=== PATIENT | female | born 1975 | race Caucasian/White ===

== ENCOUNTER 2021-08-27 23:32 | Emergency (ER) | payer OTHER, SELFPAY ==
--- NOTE | 2021-08-27 23:41 | ECG_ITS ---
Test Reason : PALPITATIONS Blood Pressure : / mmHG Vent. Rate : 094 BPM Atrial Rate : 094 BPM P-R Int : 130 ms QRS Dur : 076 ms QT Int : 352 ms P-R-T Axes : 065 076 058 degrees QTc Int : 440 ms Normal sinus rhythm Possible Left atrial enlargement Borderline ECG No previous ECGs available Referred By: Ernestine Hoskins Electronically Signed By:CHRIS ROSE MD
[2021-08-27 23:46] VITALS: BMI 20.6
[2021-08-27 23:57] VITALS: BP 126/75; PULSE 100; RESP 13; TEMP 36.7; O2SAT 98
--- NOTE | 2021-08-28 00:15 | ED.ARRPALP ---
HPI - Arrhythmia/Palpitations General Chief Complaint: Arrhythmia/Palpitations Stated Complaint: chest palpatations Time Seen by Provider: 08/27/21 23:41 Source: patient Mode of arrival: EMS History of Present Illness HPI narrative: 46-year-old female with significant past medical history of Graves disease and currently on Lopressor 25 mg extended release as well as 20 mg of methimazole. Patient is brought in by EMS this evening for complaints of significant racing heart, palpitations that she experienced while sitting on the couch. She states she has been taking her medications as prescribed and saw her welding process engineer, Dr. Li, 2 weeks ago. She states that she has significantly decreased her caffeine intake and that the only new change has been attempting to quit smoking. Otherwise, she denies fever, chills, nausea, vomiting, diarrhea, urinary pain/burning/frequency, new cough/sore throat /shortness of breath. Related Data Allergies Allergy/AdvReac Type Severity Reaction Status Date / Time No Known Allergies Allergy Unverified 08/27/21 23:41 Review of Systems Review of Systems: Pertinent positives and negatives as stated in HPI 10 point review of systems is otherwise negative. PMFSH Past Medical History Source: nursing notes reviewed Medical History Asthma Goiter Graves disease HTN (hypertension) Hyperthyroidism Social History Social History Advance Directives: No Advance Directives Information Provided: Yes Patient : No Physical Exam Vital Signs: Vital Signs: Last Vital Signs Temp 98.1 F 08/27/21 23:57 Pulse 94 08/28/21 00:28 Resp 14 08/28/21 00:28 BP 119/76 08/28/21 00:28 Pulse Ox 98 08/28/21 00:28 Body Mass Index 20.6 VITAL SIGNS: Reviewed. GENERAL: Well developed, well nourished, in no acute distress. HEAD: Normocephalic/atraumatic EYES: PERRLA, EOMI OROPHARYNX: no oral lesions noted, posterior pharynx clear, moist mucosa NECK: Supple, no adenopathy LUNGS: Normal breath sounds. No adventitious sounds or accessory muscle use. SpO2<98> CARDIOVASCULAR: Regular rate and rhythm without noted murmurs, no JVD or lower extremity edema. ABDOMEN: Soft, non-tender, non-distended with bowel sounds. MUSCULOSKELETAL: No tenderness, deformities, or effusions noted on gross inspection. EXTREMITIES: No cyanosis, clubbing or edema. SKIN: Inspection of the skin reveals no rashes NEUROLOGIC: Alert and oriented x 4. Strength and sensation to light touch were grossly intact x 4. Course Course Course Narrative: 46-year-old female with history and clinical presentation suggestive of possible mild dehydration, or underlying infection that may be contributing to patient's sinus tachycardia. Review of all investigations only significant for known underlying Graves disease for which patient is currently being treated and under the care her welding process engineer. The thyroid results were discussed with her at bedside and are consistent with her recent laboratory testing. She has had good response to IV fluids and was counseled extensively on staying well hydrated and to continue monitoring her caffeine intake as well as sticking to her medications that are prescribed for her Graves disease. There is no evidence of any thyroid storm or other acute medical problems. MDM - Arrhythmia/Palpitations Lab Data Result diagrams: 08/28/21 00:36 08/28/21 00:36 Labs: Lab Results 08/28/21 08/28/21 Range/Units 00:36 00:36 WBC 10.0 (4.8-10.8) X10*3/uL RBC 4.61 (4.20-5.50) X10*6/uL Hgb 13.3 (12.0-16.0) g/dl Hct 41.5 (37.0-47.0) % MCV 90.0 (80.0-98.0) fL MCH 28.9 (27.0-33.0) pg MCHC 32.0 (31.0-35.0) g/dl RDW 13.2 (11.0-16.0) % Plt Count 314 (160-400) X10*3/uL MPV 9.8 (9.4-12.3) fL Immature Gran % (Auto) 0.2 (0.0-0.4) % Neut % (Auto) 55.8 (45-73) % Lymph % (Auto) 32.5 (20-40) % [place] % (Auto) 8.4 (2-11) % Eos % (Auto) 2.3 (0-4) % Baso % (Auto) 0.8 (0-2) % Lymph # (Auto) 3.2 (1.2-4.9) X10*3/uL [place] # (Auto) 0.8 (0.1-1.2) X10*3/uL Eos # (Auto) 0.2 (0.0-0.4) X10*3/uL Baso # (Auto) 0.1 (0.0-0.2) X10*3/uL Abs Immat Gran (auto) 0.02 (0.00-0.03) X10*3/uL Absolute Neuts (auto) 5.6 (2.0-8.3) x10*3/uL Absolute Nucleated RBC 0.000 (0.0-0.012) X10*3/uL Nucleated RBC % (auto) 0.0 (0.0-0.2) /100WBC Sodium 144 (135-145) mmol/L Potassium 4.8 (3.3-5.1) mmol/L Chloride 108 (96-108) mmol/L Carbon Dioxide 29 (22-29) mmol/L Anion Gap 12 (12-20) BUN 11 (9-16) mg/dL Creatinine 0.78 (0.5-1.4) mg/dL Estim Creat Clear Calc 84.3 Estimated GFR > 60 Random Glucose 93 (60-115) mg/dL Calcium 9.6 (8.4-10.2) mg/dL Total Bilirubin 0.2 (0.0-1.0) mg/dL AST 13 (5-31) U/L ALT 14 (0-31) U/L Alkaline Phosphatase 85 (39-117) U/L Total Protein 6.4 L (6.5-8.0) g/dL Albumin 4.0 (3.5-5.0) g/dL TSH < 0.01 L (0.32-4.0) uIU/mL Free T4 0.66 L (0.71-1.85) ng/dL ECG Data Attestation: I personally reviewed and interpreted this ECG as follows: Prior ECG tracings: not available for review Interpretation: Normal sinus rhythm, HR- 94, no STEMI, MT / QRS/ QTC are within normal limits. Discharge Plan Discharge Clinical Impression: Palpitations, Dehydration, Graves disease, Sinus tachycardia Patient Disposition: Home, Self-Care Instructions: Dehydration (ED), Graves Disease (ED), Heart Palpitations (ED) Additional Instructions: 1. Resume all home medications as prescribed. 2. Stay well hydrated especially with water and continue to limit amount of caffeine. 3. Please follow-up with your primary care provider as well as your welding process engineer in the next 1-2 days for re-evaluation and further outpatient management. Return to the ER for worsening symptoms.
[2021-08-28 00:28] VITALS: BP 119/76; PULSE 94; RESP 14; O2SAT 98
[2021-08-28 00:42] LABS: MANUAL DIFF FLAG NO
[2021-08-28 00:43] LABS: Basophils Absolute Auto 0.1 X10*3/uL (0.0-0.2); Basophils Percent Auto 0.8 % (0-2); Eosinophils Absolute Auto 0.2 X10*3/uL (0.0-0.4); Eosinophils Percent Auto 2.3 % (0-4); Hematocrit 41.5 % (37.0-47.0); Hemoglobin 13.3 g/dl (12.0-16.0); Imm Gran Abs Auto 0.02 X10*3/uL (0.00-0.03); Imm Gran Pct Auto 0.2 % (0.0-0.4); Lymphocytes Absolute Auto 3.2 X10*3/uL (1.2-4.9); Lymphocytes Percent Auto 32.5 % (20-40); Mean Corpuscular Hemoglobin 28.9 pg (27.0-33.0); Mean Platelet Volume 9.8 fL (9.4-12.3); Monocytes Absolute Auto 0.8 X10*3/uL (0.1-1.2); Monocytes Percent Auto 8.4 % (2-11); Neutrophils Absolute Auto 5.6 x10*3/uL (2.0-8.3); Neutrophils Percent Auto 55.8 % (45-73); Platelet Count 314 X10*3/uL (160-400); Red Blood Count 4.61 X10*6/uL (4.20-5.50); Red Cell Distribution Width 13.2 % (11.0-16.0)
[2021-08-28] MEDS: 0.9 % Sodium Chloride 1,000 ML 999 ML IV (01:04)
--- NOTE | 2021-08-28 01:06 | PC.NURSE ---
IVF HUNG AND INFUSING WITHOUT DIFFICULTY. PT DENIES CHEST PAIN OR PALPITATIONS, SINUS TACH ON MONITOR. AWAITING LAB RESULTS. AWARE OF PLAN OF CARE.
[2021-08-28 01:07] LABS: Alanine Aminotransferase 14 U/L (0-31); Alkaline Phosphatase 85 U/L (39-117); Anion Gap 12 (12-20); Aspartate Amino Transferase 13 U/L (5-31); Bilirubin Total 0.2 mg/dL (0.0-1.0); Blood Urea Nitrogen 11 mg/dL (9-16); Calcium 9.6 mg/dL (8.4-10.2); Carbon Dioxide 29 mmol/L (22-29); Chloride 108 mmol/L (96-108); Creatinine Clr Calc Pharmacy 84.3; Estimated Glomerular Filt Rate > 60; Glucose Random 93 mg/dL (60-115); Potassium 4.8 mmol/L (3.3-5.1); Sodium 144 mmol/L (135-145); Total Protein 6.4 g/dL (6.5-8.0)
[2021-08-28 01:24] LABS: TSH reflex Free T4 < 0.01 uIU/mL (0.32-4.0)
[2021-08-28 02:32] LABS: Free T4 (Free Thyroxine) 0.66 ng/dL (0.71-1.85)
[2021-08-28 03:19] VITALS: BP 112/66; PULSE 87; RESP 18; O2SAT 97
== END 2021-08-28 03:20 | disposition home or self-care (01) ==
PROVIDERS: Emergency Provider Student in an Organized Health Care Education/Training Program
DX: E86.0 Dehydration (principal); R00.2 Palpitations; R00.0 Tachycardia, unspecified; E05.00 Thyrotoxicosis with diffuse goiter without thyrotoxic crisis or storm; I10 Essential (primary) hypertension
CPT/HCPCS: 36415; 80053; 84439; 84443; 85025; 93005; 96360; 99284

== ENCOUNTER 2022-02-17 19:08 | Emergency (ER) | payer OTHER, SELFPAY ==
[2022-02-17 19:26] VITALS: BP 150/90; PULSE 70; O2SAT 97
[2022-02-17 19:27] VITALS: BP 142/73; PULSE 76; RESP 18; TEMP 36.8; O2SAT 97; BMI 22.6
[2022-02-17 19:42] LABS: MANUAL DIFF FLAG NO
[2022-02-17 19:43] LABS: Basophils Absolute Auto 0.1 X10*3/uL (0.0-0.2); Basophils Percent Auto 0.9 % (0-2); Eosinophils Absolute Auto 0.2 X10*3/uL (0.0-0.4); Eosinophils Percent Auto 2.2 % (0-4); Hematocrit 39.5 % (37.0-47.0); Hemoglobin 12.8 g/dl (12.0-16.0); Imm Gran Abs Auto 0.03 X10*3/uL (0.00-0.03); Imm Gran Pct Auto 0.3 % (0.0-0.4); Lymphocytes Absolute Auto 4.3 X10*3/uL (1.2-4.9); Lymphocytes Percent Auto 41.3 % (20-40); Mean Corpuscular HGB Conc 32.4 g/dl (31.0-35.0); Mean Corpuscular Hemoglobin 28.1 pg (27.0-33.0); Mean Corpuscular Volume 86.6 fL (80.0-98.0); Mean Platelet Volume 10.3 fL (9.4-12.3); Monocytes Absolute Auto 0.8 X10*3/uL (0.1-1.2); Neutrophils Percent Auto 47.3 % (45-73); Platelet Count 247 X10*3/uL (160-400); Red Blood Count 4.56 X10*6/uL (4.20-5.50); Red Cell Distribution Width 13.6 % (11.0-16.0); White Blood Count 10.5 X10*3/uL (4.8-10.8)
[2022-02-17 19:58] LABS: Alanine Aminotransferase 12 U/L (0-31); Albumin Level 3.8 g/dL (3.5-5.0); Alkaline Phosphatase 66 U/L (39-117); Anion Gap 13 (12-20); Aspartate Amino Transferase 10 U/L (5-31); Bilirubin Total 0.2 mg/dL (0.0-1.0); Blood Urea Nitrogen 10 mg/dL (9-16); Calcium 7.9 mg/dL (8.4-10.2); Carbon Dioxide 26 mmol/L (22-29); Chloride 106 mmol/L (96-108); Creatinine Clr Calc Pharmacy 81.9; Estimated Glomerular Filt Rate > 60; Glucose Random 103 mg/dL (60-115); Sodium 141 mmol/L (135-145); Total Protein 6.2 g/dL (6.5-8.0)
[2022-02-17 20:22] VITALS: BP 126/77; PULSE 67; RESP 14; TEMP 37.3; O2SAT 99
--- NOTE | 2022-02-17 21:01 | ED.NEUROSD ---
HPI - Neuro Symptoms/Deficit General Chief Complaint: Neuro Symptoms/Deficit Stated Complaint: low calcium levels Time Seen by Provider: 02/17/22 19:10 Source: patient Mode of arrival: ambulatory Limitations: no limitations History of Present Illness HPI Narrative: Patient is status post thyroidectomy done 2 days ago for Graves disease on calcium tablets comes here for having muscle spasm and tingling sensation of the tips of the fingers started around 14:00. Patient took 2 tablets of calcium and supposed to take 2 more tablets in the afternoon which she has not taken here patient seems very anxious Related Data Allergies Allergy/AdvReac Type Severity Reaction Status Date / Time No Known Allergies Allergy Unverified 08/27/21 23:41 Review of Systems Review of Systems: Yes all other systems are reviewed and are negative [facility] Past Medical History Medical History Asthma Goiter Graves disease HTN (hypertension) Hyperthyroidism Social History Social History Advance Directives: No Advance Directives Information Provided: No Patient : No Physical Exam Vital Signs: Vital Signs: Last Vital Signs Temp 99.1 F 02/17/22 20:22 Pulse 50 02/17/22 22:14 Resp 12 02/17/22 22:14 BP 125/72 02/17/22 22:14 Pulse Ox 97 02/17/22 22:14 BMI result Body Mass Index 22.6 Appearance: Alert. Oriented X3. No acute distress. Eyes: PERRLA, No Nystagmus ENT: Pharynx normal. Oral Mucosa moist Neck: Normal inspection. Neck supple. Postop surgical site looks healthy CVS: Normal heart rate and rhythm. Pulses normal. Respiratory: No respiratory distress. Equal air entry bilateral, no wheezing/rales/rhonchi Abdomen: Soft and nontender. Bowel sounds are present, no mass palpable, no CVA tenderness Skin: Skin warm and dry. Normal skin color. Normal skin turgor. Extremities: No lower extremity edema. No calf tenderness Neuro: Oriented X 3. No motor deficit. No sensory deficit.No cerebellar signs , cranial nerves II-XII intact MDM - Neuro Symptoms/Deficit MDM Narrative Medical decision making narrative: Patient with slightly low 7.9 but she is symptomatic along with anxiety will give a dose of IV calcium gluconate advised to continue p.o. calcium. Patient's symptoms improved after IV calcium discharge the patient Lab Data Attestation: I reviewed the patient's lab results. Result diagrams: 02/17/22 19:36 02/17/22 19:36 Labs: Lab Results 02/17/22 02/17/22 Range/Units 19:36 19:36 WBC 10.5 (4.8-10.8) X10*3/uL RBC 4.56 (4.20-5.50) X10*6/uL Hgb 12.8 (12.0-16.0) g/dl Hct 39.5 (37.0-47.0) % MCV 86.6 (80.0-98.0) fL MCH 28.1 (27.0-33.0) pg MCHC 32.4 (31.0-35.0) g/dl RDW 13.6 (11.0-16.0) % Plt Count 247 (160-400) X10*3/uL MPV 10.3 (9.4-12.3) fL Immature Gran % (Auto) 0.3 (0.0-0.4) % Neut % (Auto) 47.3 (45-73) % Lymph % (Auto) 41.3 H (20-40) % [place] % (Auto) 8.0 (2-11) % Eos % (Auto) 2.2 (0-4) % Baso % (Auto) 0.9 (0-2) % Lymph # (Auto) 4.3 (1.2-4.9) X10*3/uL [place] # (Auto) 0.8 (0.1-1.2) X10*3/uL Eos # (Auto) 0.2 (0.0-0.4) X10*3/uL Baso # (Auto) 0.1 (0.0-0.2) X10*3/uL Abs Immat Gran (auto) 0.03 (0.00-0.03) X10*3/uL Absolute Neuts (auto) 5.0 (2.0-8.3) x10*3/uL Absolute Nucleated RBC 0.000 (0.0-0.012) X10*3/uL Nucleated RBC % (auto) 0.0 (0.0-0.2) /100WBC Sodium 141 (135-145) mmol/L Potassium 4.0 (3.3-5.1) mmol/L Chloride 106 (96-108) mmol/L Carbon Dioxide 26 (22-29) mmol/L Anion Gap 13 (12-20) BUN 10 (9-16) mg/dL Creatinine 0.82 (0.5-1.4) mg/dL Estim Creat Clear Calc 81.9 Estimated GFR > 60 Random Glucose 103 (60-115) mg/dL Calcium 7.9 L D (8.4-10.2) mg/dL Phosphorus 3.7 (2.7-4.5) mg/dL Magnesium 1.5 L (1.6-2.6) mg/dL Total Bilirubin 0.2 (0.0-1.0) mg/dL AST 10 (5-31) U/L ALT 12 (0-31) U/L Alkaline Phosphatase 66 D (39-117) U/L Total Protein 6.2 L (6.5-8.0) g/dL Albumin 3.8 (3.5-5.0) g/dL Discharge Plan Discharge Clinical Impression: Hypocalcemia Patient Disposition: Home, Self-Care Instructions: Hypocalcemia (ED) Additional Instructions: Your calcium level was 7.0 which is slightly lower level Continue taking her calcium tablets and follow with your surgeon Discharge Date/Time: 02/17/22 23:55
--- NOTE | 2022-02-17 21:12 | ECG_ITS ---
Test Reason : LOW CALCIUM Blood Pressure : / mmHG Vent. Rate : 055 BPM Atrial Rate : 055 BPM P-R Int : 142 ms QRS Dur : 070 ms QT Int : 462 ms P-R-T Axes : 099 063 060 degrees QTc Int : 441 ms Sinus bradycardia Otherwise normal ECG When compared with ECG of 27-AUG-2021 23:52, Vent. rate has decreased BY 39 BPM Referred By: Aureliano Doyle Electronically Signed By:Christiano Chaves
[2022-02-17 21:20] LABS: Magnesium 1.5 mg/dL (1.6-2.6); Phosphorus 3.7 mg/dL (2.7-4.5)
[2022-02-17] MEDS: Calcium Gluconate/NaCl,Iso-Osm 2 GM/100 ML PLAST..BAG IV (21:31)
[2022-02-17 22:14] VITALS: BP 125/72; PULSE 50; RESP 12; O2SAT 97
== END 2022-02-17 23:55 | disposition home or self-care (01) ==
PROVIDERS: Emergency Provider Internal Medicine
DX: E83.51 Hypocalcemia (principal); E89.0 Postprocedural hypothyroidism; I10 Essential (primary) hypertension; J45.909 Unspecified asthma, uncomplicated; Z79.899 Other long term (current) drug therapy
CPT/HCPCS: 36415; 80053; 83735; 84100; 85025; 93005; 99283; J0610